=== PATIENT | male | born 1955 | race Caucasian/White ===

== ENCOUNTER → 2018-12-01 | Outpatient (CLI) | payer OTHER ==
[~2018-12-01] MED LIST: ASPIRIN EC81 M1; AUGMENTIN 875875 MG PO; LIPITOR80 MG; LISINOPRIL20 MG; NASONEX17 GM; NORCO 5-325 TA1 EACH PO
== END ==
LOC: CAT 07:49
DX: Z13.6 Encounter for screening for cardiovascular disorders (principal); E78.00 Pure hypercholesterolemia, unspecified; I25.10 Atherosclerotic heart disease of native coronary artery without angina pectoris